=== PATIENT | male | born 1940 | race Caucasian/White ===

== ENCOUNTER 2022-11-08 16:13 | Emergency (ER) | payer OTHER ==
[2022-11-08] MEDS ORDERED: TETRACAINE 0.5% OPHTH SOLN 2 ML BOTTLE ONE (18:19)
[2022-11-08] MEDS ORDERED: FLUORESCEIN NA 1 EA STRIP ONE (18:19)
[2022-11-08 18:47] VITALS: BP 133/73; PULSE 81; RESP 18; TEMP 98.6; BMI 28.1
[2022-11-08] MEDS ORDERED: FLUORESCEIN NA 1 EA STRIP OD ONE (18:52)
[2022-11-08] MEDS ORDERED: TETRACAINE 0.5% HCL 0.6ML DROPPER.BOTTLE OS ONE (18:53)
== END 2022-11-08 19:34 | disposition home or self-care (01) ==
LOC: FER 16:13
DX: H57.12 Ocular pain, left eye (principal)
CPT/HCPCS: 99282-25

== ENCOUNTER 2023-06-21 15:37 | Emergency (ER) | payer OTHER ==
[2023-06-21] MEDS ORDERED: ACETAMINOPHEN 325 MG TABLET (FP) PO ONE (15:41)
[2023-06-21] MEDS ORDERED: ACETAMINOPHEN 325 MG TABLET (FP) ONE (15:48)
[2023-06-21 15:56] VITALS: BP 116/62; PULSE 87; RESP 18; TEMP 97.8; BMI 29.0
== END 2023-06-21 16:57 | disposition home or self-care (01) ==
LOC: FER 15:37
DX: M79.645 Pain in left finger(s) (principal); M79.642 Pain in left hand
CPT/HCPCS: 73130-TC-LT-FY; 99283-25